=== PATIENT | female | born 1950 | race Caucasian/White ===

== ENCOUNTER 2017-04-02 16:36 | Inpatient (IN) | payer OTHER ==
--- NOTE | 2017-04-02 17:26 | EDPHY ---
H & P Time Seen by Provider: 04/02/17 17:09 HPI/ROS: CHIEF COMPLAINT: Fall HISTORY OF PRESENT ILLNESS: Patient is a 66-year-old female who presents to the emergency department after falling down a flight of stairs at home. Patient complains of left shoulder, left anterior chest and left wrist pain. She also has a bloody nose and a bruise to her left eye. Patient describes mild headache. No loss of consciousness. No nausea or vomiting. She has no numbness or tingling in her extremities. No neck or back pain. No shortness of breath. No abdominal pain. REVIEW OF SYSTEMS: My complete review of systems is negative except as mentioned in the HPI. Past Medical/Surgical History: Includes polymyalgia rheumatica, hypertension Past surgical history: Appendectomy Social history: The patient speaks American. Smoking Status: Never smoked Physical Exam: Vitals noted GENERAL: Well-appearing, in no acute distress, alert. HEAD: No evidence of trauma. EYES: left periorbital hematoma. PERRLA, EOMI. ENT: Airway intact, no dental or oral injury, no malocclusion, no hemotympanum , normal external examination. NECK: The trachea is midline. There is no crepitus. The C-spine is nontender. NEXUS criteria is negative (no midline tenderness, no distracting injury, no altered mental status, no recent alcohol use, no focal neurologic deficit). RESPIRATORY: Clear to auscultation bilaterally, no rales, rhonchi or wheezing. Chest wall: The patient has left anterior chest wall tenderness palpation. There is mild swelling. CVS: Regular rate and rhythm, no rubs, murmurs, or gallops. ABDOMEN: Soft, nontender, nondistended, normal bowel sounds, no bruising or abrasions. Pelvis: Stable. No tenderness palpation. Hips full range of motion. BACK: Normal to inspection, no spinal tenderness, no spinal step off, no notable bruising or abrasions. SKIN: Normal color, warm, dry. No pallor or diaphoresis. EXTREMITIES: Right upper extremity: Atraumatic. No visible signs of trauma. No tenderness palpation. Neurovascular intact distally. Left upper extremity: The patient has a deformity of her left wrist. Mild tenderness palpation. Patient has no elbow tenderness. She has mild left anterior shoulder tenderness no deformity. Neurovascular intact distally. Right lower extremity: Atraumatic. No visible signs of trauma. No tenderness palpation. Neurovascular intact distally. Left lower extremity: Atraumatic. No visible signs of trauma. No tenderness palpation. Neurovascular intact distally. NEURO/PSYCH: Alert and oriented x 3, GCS 15, normal mood and affect, normal motor sensory exam. Constitutional: Initial Vital Signs Temperature (C) 37 C 04/02/17 16:40 O2 Delivery Mode Room Air Allergies/Adverse Reactions: No Known Allergies Allergy (Unverified 04/02/17 16:39) Home Medications: Medication Instructions Recorded Omeprazole 04/02/17 Prednisolone 04/02/17 amLODIPine BESYLATE 04/02/17 Medical Decision Making - Diagnostics Imaging Results: Imaging Impressions Shoulder X-Ray 04/02/17 16:48 Impression: Comminuted distal radial intra-articular fracture. 2. Left Shoulder, 3 views History: Pain post fall Findings: There is a nondisplaced oblique fracture coursing through the distal clavicle. The fracture enters the non disrupted articular surface of the clavicle. The AC joint remains normally aligned. The humeral head remains normally aligned with the glenoid. No shoulder joint fracture is identified. Impression: Distal left clavicular fracture. Wrist X-Ray 04/02/17 16:48 Impression: Comminuted distal radial intra-articular fracture. 2. Left Shoulder, 3 views History: Pain post fall Findings: There is a nondisplaced oblique fracture coursing through the distal clavicle. The fracture enters the non disrupted articular surface of the clavicle. The AC joint remains normally aligned. The humeral head remains normally aligned with the glenoid. No shoulder joint fracture is identified. Impression: Distal left clavicular fracture. Chest X-Ray 04/02/17 17:26 Impression: Possible distal left clavicle fracture. Consider dedicated clavicle x-rays if clinically indicated. Head CT 04/02/17 17:27 Impression: 1. No acute intracranial hemorrhage or skull fracture. 2. Acute depressed left tripod fracture, with involvement of the lateral orbital wall and orbital floor. Findings discussed with Emergency Department physician, Radha Ruth M.D. , on April 02, 2017 at 1814. ED Course/Re-evaluation: In the emergency department I discussed possible etiologies with the patient. I answered all her questions. An x-ray of her left wrist, left shoulder, chest and head CT were ordered. I discussed plan with the patient and her son. Her son translated. Left wrist x-ray: Please refer the dictated report. Patient has a comminuted distal left wrist fracture. Left shoulder x-ray: The patient has a distal clavicle fracture. The head of the clavicle also seems displaced. Because of this a chest x-ray was ordered. I discussed the results with the patient. I answered their questions. Chest x-ray: There is no pneumothorax. No visible rib fracture. There is an abnormally placed left clavicle. I discussed this with the radiologist, Dr. Burroughs. He recommended CT angiogram. This was ordered. I discussed the plan with the patient. I answered all her questions. Patient head and sugar-tong splint placed on her left wrist. Left shoulder sling was placed. This improved her pain. Creatinine 0.8 Patient was given fentanyl 50 mcg IV and Zofran [address]: Please refer the dictated report. No intracranial hemorrhage. No skull fracture. The patient does have an acute minimally displaced left-sided tripod fracture that involves the anterior posterior polanco of the maxillary sinus, temporal zygomatic arch, lateral orbital wall, and orbital floor. I discussed this with the patient. CT angiogram: Please refer the dictated report by Dr. Asya Roldan. I reviewed the images with her. The patient has both proximal and distal left clavicle fracture. The great vessels are intact. There is no hemothorax or pneumothorax. I discussed the case with Dr. Lemon from Trauma surgery. She will come and evaluate the patient. I also discussed the case with Dr. Adames's PA. 1925: The patient is feeling much better after pain medication. Differential Diagnosis: My differential includes but is not limited to rib fracture, pneumothorax, hemothorax, chest wall contusion, wrist fracture, dislocation, sprain, contusion - Data Points Laboratory Results: 04/02/17 18:20 POC Hgb 14.3 gm/dL gm/dL (12.6-16.3) POC Hct 42 % % (38-47) POC Sodium 140 mEq/L mEq/L (134-144) POC Potassium 3.6 mEq/L mEq/L (3.3-5.0) POC Chloride 104 mEq/L mEq/L (97-110) POC BUN 9 mg/dL mg/dL (7-23) POC Creatinine 0.8 mg/dL mg/dL (0.6-1.0) POC Glucose 142 mg/dL H mg/dL (70-100) Medications Given: Discontinued Medications Fentanyl (Sublimaze) 50 mcg IVP EDNOW ONE Stop: 04/02/17 18:48 Last Admin: 04/02/17 19:02 Dose: 50 mcg Ondansetron HCl (Zofran) 4 mg IVP EDNOW ONE Stop: 04/02/17 18:48 Last Admin: 04/02/17 19:02 Dose: 4 mg Point of Care Test Results: 04/02/17 18:20 POC Sodium 140 POC Potassium 3.6 POC Chloride 104 POC BUN 9 POC Creatinine 0.8 POC Glucose 142 H Departure - Departure Disposition: [facility] Inpatient Acute Clinical Impression: Closed tripod fracture of zygomaticomaxillary complex Qualifiers: Encounter type: initial encounter Qualified Code(s): S02.402A - Zygomatic fracture, unspecified side, initial encounter for closed fracture Left wrist fracture Qualifiers: Encounter type: initial encounter Fracture type: closed Qualified Code(s): S62.102A - Fracture of unspecified carpal bone, left wrist, initial encounter for closed fracture Clavicular fracture Qualifiers: Encounter type: initial encounter Clavicle location: unspecified part of clavicle Fracture type: closed Laterality: left Condition: Good Referrals: NONE *PRIMARY CARE P,. [Primary Care Provider] - As per Instructions
[2017-04-02] MEDS ORDERED: IOPAMIDOL (ISOVUE 370) 100 ML BTL IV ONE (18:43)
[2017-04-02] MEDS ORDERED: fentaNYL 100 MCG/2 ML INJ IVP ONE (18:47)
[2017-04-02] MEDS ORDERED: ONDANSETRON 4 MG/2 ML VIAL IVP ONE (18:47)
[2017-04-02] MEDS ORDERED: ACETAMINOPHEN 325 MG TAB PO PRN (19:59)
[2017-04-02] MEDS ORDERED: ONDANSETRON 4 MG/2 ML VIAL IVP PRN (19:59)
--- NOTE | 2017-04-02 20:41 | GHP ---
[f rep st] PREOP HISTORY AND PHYSICAL DATE OF ADMISSION: 04/02/2017 CHIEF COMPLAINT: Fall. HISTORY OF PRESENT ILLNESS: The patient is a 66-year-old woman, who fell down a flight of stairs at home. She did not lose consciousness. She presented with left shoulder and left wrist pain, and a m ild headache. PAST MEDICAL HISTORY: Polymyalgia rheumatica, hypertension. PAST SURGICAL HISTORY: Appendectomy. SOCIAL HISTORY: She speaks Kazakh. She denies tobacco or alcohol use. FAMILY HISTORY: Her father of colon cancer. He also had heart stents. REVIEW OF SYSTEMS: A 10-point review of systems is negative except for pain in her shoulder and wris t. She specifically denies headache currently, double vision, or visual changes. PHYSICAL EXAMINATION: VITALS: Reviewed. GENERAL: Pleasant, well-nourished, well-groomed woman sit ting up on a gurney. Son at bedside, who is assisting with translation. HEENT: She has left perior bital ecchymosis. Otherwise, normocephalic. Pupils are equal, round, and reactive to light. No hem otympanum. No otorrhea. No rhinorrhea. Teeth fit together normally. She reports a small amount of numbness over her left maxilla. NECK: Nontender. Full range of motion. BACK: No cervical, thora cic, lumbar, or sacral tenderness. LUNGS: Clear to auscultation bilaterally. No increased work of breathing. CARDIAC: Regular rate. CHEST: She is tender over her left clavicle. MUSCULOSKELETAL: She has full range of motion and equal strength with the exception of her left upper extremity, whic h is in a splint. Her fingers are warm, and she has good sensation. NEUROLOGIC: Grossly intact. A BDOMEN: Bowel sounds present. Soft, nontender, nondistended. PSYCHIATRIC: Mood and affect normal. LABORATORY DATA: Results reviewed. I reviewed the results of her head CT, C-spine, and chest CT, as well as her plain films. ASSESSMENT: Dr. Adames has been consulted for her clavicle fracture, which is comminuted in 2 [address]. It is at the proximal clavicular head, along with an intra-articular fracture at the dista l clavicle going into the AC joint. She also has a comminuted distal radial intra-articular fracture . She is nonweightbearing on her left upper extremity. She is in a splint and a sling. I will allo w her to eat tonight and be n.p.o. at midnight. I spoke with Dr. Adames, and he will plan to operate on her wrist tomorrow. She has a tripod fracture involving the lateral orbital wall and orbital floo r. Dr. Meredith will see her in the morning. Dr. Trujillo will also see her. /[id number]/MODL
[2017-04-02] MEDS ORDERED: ceFAZolin 2 GM/DEXTROSE 100 ML IV ONE (21:31)
[2017-04-02] MEDS: HYDROCODONE/APAP 5/325 TAB PO PRN (21:53)
[2017-04-02] MEDS: D5W 1/2 NS W/ 20 KCl/L 1,000 ML IV SCH (22:20)
--- NOTE | 2017-04-03 03:03 | GCON ---
[f rep st] CONSULTATION DATE OF CONSULTATION: 04/02/2017 HISTORY OF PRESENT ILLNESS: The patient is a 66-year-old right-handed female, who presents to the em ergency department after she fell down 1 flight of stairs. Patient reports pain in the left upper ex tremity. Patient states she did not lose consciousness. Patient is here visiting from the [facility]. She has plans to return back home on April 13, 2017. Patient denies any headache, numbness, t ingling, or weakness. PAST MEDICAL HISTORY: Polymyalgia rheumatica and hypertension. PAST SURGICAL HISTORY: Appendectomy. ALLERGIES: No known drug allergies. SOCIAL HISTORY: Patient speaks Eritrean. She is from the [facility] and is here visiting family. She denies any tobacco or alcohol use. FAMILY HISTORY: Her father of colon cancer. REVIEW OF SYSTEMS: No other complaints after a 10-point review. PHYSICAL EXAMINATION: GENERAL: Patient is a healthy, well-appearing female. She is alert, active, and in no acute distress. HEENT: Head is normocephalic, atraumatic. Ears, nose, and mouth appear n ormal. Eye motion is intact. There is ecchymosis around the left eye. NECK: Supple with full rang e of motion. Trachea is midline. LUNGS: Chest motion appears normal. Respirations are nonlabored. MUSCULOSKELETAL: Skin is intact over the left upper extremity without any erythema, ecchymosis, jovani r, or edema. The left forearm is in a splint and sling. There is no tenting of the skin over the le ft clavicle. Patient is able to wiggle her fingers on the left upper extremity. Good psychiatric cns strength on the contralateral side. Sensation is intact throughout. Patient has full range of motion and str ength of the bilateral lower extremities without pain. Radial pulse 2+ with brisk capillary refill. Dorsalis pedis pulse 2+. Calves are soft, nontender. Negative Homans. SKIN: Please see dictation above. Otherwise, no other erythema, ecchymosis, calor, or edema. NEURO: Patient appears alert and oriented to person, place, and time. Speech is fluid and fluent. PSYCH: Affect is normal. RADIOGRAPHIC DATA: X-rays are reviewed of the left shoulder and left wrist. The left shoulder x-ray shows a comminuted left clavicle fracture. Of the left wrist, there is a comminuted distal radius i ntraarticular fracture. ASSESSMENT AND PLAN: Left wrist fracture. Discussed with patient and her family that this type of f racture will heal better with an open reduction internal fixation. Risks, benefits, and alternatives were discussed with the patient and her family. Patient has decided to proceed with the described s urgery, and an informed consent was obtained. We will currently treat the clavicle fracture nonopera tively. Patient will remain nonweightbearing of the left upper extremity with her splint and sling. Continue pain management. Ice and elevation for comfort. Surgery is scheduled on April 03, 2017, with Dr. Adames at approximately 3 p.m. Patient will follow up after discharge with Dr. Adames 10-14 d ays postoperatively, ideally before she leaves to go back to the [place]. Also discussed with preet barton to start establishing care in the [place] for when she returns home. The case and radiogra phs were discussed with Dr. Adames, and he agrees with the assessment and plan today. /[id number]/MODL
[2017-04-03] MEDS: HYDROCODONE/APAP 5/325 TAB PO PRN ×2 (04:51→15:57)
--- NOTE | 2017-04-03 08:26 | SOAPPROG ---
MICHEL Progress Note Assessment/Plan: Assessment: Pt seen this am. Has L slightly displaced tripod fx. She wants me to come back when her son is here to discuss options as her Yi is somewhat limited. Full note to follow Plan: 04/03/17 08:25 Objective: Vital Signs Temp Pulse Resp BP Pulse Ox 37.1 C 86 16 121/78 H 95 04/03/17 04:00 04/03/17 04:00 04/03/17 04:00 04/03/17 04:00 04/03/17 04:00 04/02/17 04/03/17 04/04/17 05:59 05:59 05:59 Intake Total 952 Balance 952 ICD10 Worksheet Patient Problems: Problems Problem Status Onset Clavicular fracture Acute Closed tripod fracture of zygomaticomaxillary complex Acute Left wrist fracture Acute
--- NOTE | 2017-04-03 09:37 | SOAPPROG ---
SOKEELEY Progress Note Assessment/Plan: Assessment:Left distal radius fracture, comminuted, intra-articular Plan:Pt. consented and ready for ORIF left distal radius fracture with Dr. Adames later today. S: Pt. states that her pain is "ok", primarily from the left wrist. The clavicle is causing minimal pain at this time. No Chest pain, shortness of breath, calf pain or N/T of the extremities. O: Pt. A and O, in NAD, resting comfortably. Pt. has intact sensation to all digits, left fingers are warm, dry, non-tender. No calf tenderness or swelling. Distally pulses are equal. 04/03/17 09:34 Objective: Vital Signs Temp Pulse Resp BP Pulse Ox 36.8 C 80 16 112/79 94 04/03/17 08:00 04/03/17 08:00 04/03/17 08:00 04/03/17 08:00 04/03/17 08:00 04/02/17 04/03/17 04/04/17 05:59 05:59 05:59 Intake Total 952 Balance 952 ICD10 Worksheet Patient Problems: Problems Problem Status Onset Clavicular fracture Acute Closed tripod fracture of zygomaticomaxillary complex Acute Left wrist fracture Acute
--- NOTE | 2017-04-03 09:52 | SOAPPROG ---
SOAP Progress Note Assessment/Plan: Assessment: Tertiary trauma survey today Alert and oriented with good vision in her left eye despite tripod fracture Chest clear, some clavicle tenderness on the left, no rib tenderness Cor regular rhythm Abdomen soft nontender Extremities full pulses full range of motion except for her left wrist which is in a plaster splint Vital signs are stable, afebrile/no new problems/denies back or chest pain Plan: Left wrist ORIF today/left clavicle fracture nondisplaced and treated non surgically 04/03/17 09:50 Objective: Vital Signs Temp Pulse Resp BP Pulse Ox 36.8 C 80 16 112/79 94 04/03/17 08:00 04/03/17 08:00 04/03/17 08:00 04/03/17 08:00 04/03/17 08:00 04/02/17 04/03/17 04/04/17 05:59 05:59 05:59 Intake Total 952 Balance 952 ICD10 Worksheet Patient Problems: Problems Problem Status Onset Clavicular fracture Acute Closed tripod fracture of zygomaticomaxillary complex Acute Left wrist fracture Acute
--- NOTE | 2017-04-03 11:00 | ASMTCMCOM ---
CM Note CM Note Notes: Pt visiting from [place] (speaks Faroese), had fall at home. Chart review indicates a son is local. Pt having ORIF of L wrist today, clavicle fx non-surgical. OT/PT/SPIRITUAL ADVISOR evals pending. [facility] IPR order in, Crista naidu. Date Signed: 04/03/2017 10:59 AM Electronically Signed By:YAYO Steiner
[2017-04-03] MEDS ORDERED: CEFAZOLIN 2 GM/DEXTROSE/100 ML BAG IV ONE (12:18)
--- NOTE | 2017-04-03 13:37 | PDHPUP ---
History & Physical Update H&P update statement: This history and physical update is based on an assessment of the patient which was completed after admission or registration (within 24 hours), but prior to the surgery/procedure.
[2017-04-03] MEDS ORDERED: BUPIVACAINE 0.5% 30 ML SDV ONE (13:50)
[2017-04-03] MEDS ORDERED: fentaNYL 100 MCG/2 ML INJ ONE ×3 (14:20→18:31)
[2017-04-03] MEDS ORDERED: PROPOFOL 200 MG/20 ML VIAL ONE ×2 (14:21→17:32)
--- NOTE | 2017-04-03 14:28 | PDANEPAE ---
ANE Past Medical History - Cardiovascular History Hx Hypertension: Yes Hx Arrhythmias: No Hx Chest Pain: No Hx Coronary Artery / Peripheral Vascular Disease: No Hx CHF / Valvular Disease: No Hx Palpitations: No - Pulmonary History Hx COPD: No Hx Asthma/Reactive Airway Disease: No Hx Recent Upper Respiratory Infection: No Hx Oxygen in Use at Home: No Hx Sleep Apnea: No Sleep Apnea Screening Result - Last Documented: Positive - Neurologic History Hx Cerebrovascular Accident: No Hx Seizures: No Hx Dementia: No - Endocrine History Hx Diabetes: No Hypothyroid: No Hyperthyroid: No Obesity: no - GI History GERD: moderate Hx Gastrointestinal Disorders: Yes - Other Health History Other Health History: polymyalgia rheumatica ANE Review of Systems Review of Systems: - Exercise capacity METS (RN): 4 METS ANE Patient History - Allergies Allergies/Adverse Reactions: No Known Allergies Allergy (Unverified 04/02/17 16:39) - Home Medications Home Medications: Herbals/Supplements -Info Only 1 ea PO DAILY 04/02/17 [Last Taken 04/02/17] Omeprazole [Prilosec 20 mg] 20 mg PO DAILY 04/02/17 [Last Taken 04/02/17] Prednisolone [Millipred] 2.5 mg PO SUMOTUWEFR 04/02/17 [Last Taken 04/02/17] amLODIPine BESYLATE [Norvasc 5 mg (*)] 5 mg PO DAILY 04/02/17 [Last Taken ] - NPO status NPO Since - Liquids (Date): 04/02/17 NPO Since - Liquids (Time): 23:59 NPO Since - Solids (Date): 04/02/17 NPO Since - Solids (Time): 23:59 - Anes Hx Anes Hx: no prior problems - Smoking Hx Marijuana use: No - Family Anes Hx Family Anes Hx: neg - N/A ANE Labs/Vital Signs - Vital Signs Blood Pressure: 112/79 Heart Rate: 80 Respiratory Rate: 16 O2 Sat (%): 94 Height: 165 cm Weight: 75 kg ANE Physical Exam - Airway Neck exam: FROM Mallampati Score: Class 2 Mouth exam: dentures - Pulmonary Pulmonary: no respiratory distress, no rales or rhonchi, clear to auscultation - Cardiovascular Cardiovascular: regular rate and rhythym, no murmur, rub, or gallop - ASA Status ASA Status: II ANE Anesthesia Plan Anesthesia Plan: general endotracheal anesthesia Total IV Anesthesia: No
--- NOTE | 2017-04-03 16:55 | SOAPPROG ---
SOAP Progress Note Assessment/Plan: Assessment: Spoke with patient and family, who translated. We discussed that does have that L tripod fx that is slightly displaced. It will likely cause some mild malar depression once healed and swelling has gone down. Will heal on own though will leave slight asymmetry. No overt need to do surgery from vision or stability standpoint, mainly cosmetic. She doesn't want surgery, courtney if not 100 % necessary. Should be seen by optho soon for full eye exam. Discussed that if chagnes her mind let us know though would want to do within 7 days of surgery. They understand and agree. Call if notes new sxs or vision changes Plan: 04/03/17 08:25 04/03/17 16:53 Objective: Vital Signs Temp Pulse Resp BP Pulse Ox 36.9 C 85 16 144/90 H 96 04/03/17 15:03 04/03/17 15:03 04/03/17 15:03 04/03/17 15:03 04/03/17 15:03 04/02/17 04/03/17 04/04/17 05:59 05:59 05:59 Intake Total 952 Balance 952 ICD10 Worksheet Patient Problems: Problems Problem Status Onset Clavicular fracture Acute Closed tripod fracture of zygomaticomaxillary complex Acute Left wrist fracture Acute
[2017-04-03] MEDS ORDERED: MIDAZOLAM 2 MG/2 ML VIAL ONE (17:26)
[2017-04-03] MEDS ORDERED: PHENYLEPHRINE HCL 100 MCG/ML SYR ONE (17:43)
[2017-04-03] MEDS ORDERED: MIDAZOLAM 2 MG/2 ML VIAL IVP ONE (18:03)
[2017-04-03] MEDS ORDERED: DEXAMETHASONE 4 MG/ML VIAL ONE (18:09)
[2017-04-03] MEDS ORDERED: ONDANSETRON 4 MG/2 ML VIAL ONE (18:09)
--- NOTE | 2017-04-03 19:07 | GCON ---
[f rep st] CONSULTATION DATE OF CONSULTATION: 04/03/2017 CHIEF COMPLAINT: Fall and facial trauma. HISTORY OF PRESENT ILLNESS: This is a very pleasant 66-year-old woman, who fell down a flight of stairs. She did not have any loss of consciousness, but she did present with some left shoulder, left wrist, and some facial pain. She was noted in the ER after CT scan to have a minimally displaced left tripod fracture. She denies double vision or blurry vision, but history is somewhat limited secondary to her Gambian as her second language. PAST MEDICAL HISTORY: Significant for polymyalgia rheumatica and hypertension. PAST SURGICAL HISTORY: Significant for appendectomy. SOCIAL HISTORY: She speech Nepalese and is from the [place]. She is here visiting her son. REVIEW OF SYSTEMS: Positive for the above. She denied headache, double vision , or blurry vision. PHYSICAL EXAM: GENERAL: She is awake, alert, in no apparent distress. CRANIAL NERVES: 2-12 are grossly intact with the exception of some numbness over the left V2 distribution. Exam of the ears bilaterally shows no hemotympanum or perforation. Exam of the nose shows some dried blood on the left side, but no septal hematoma. Oral cavity and oropharynx show tongue that is mobile and midline, and palate that elevates symmetrically. There is some dried blood in the back of the oropharynx. Pupils are equal, round, and reactive to light, and extraocular movements are intact, but she does have significant subconjunctival hemorrhage, lateral and medial. She also has some ecchymosis over the left zygoma and lateral orbit. She may have a little bit of depression but not obvious. She has mild tenderness of the left zygoma. IMAGING: CT scan was reviewed, and it shows a minimally displaced left tripod fracture. She has a left orbital floor fracture but this is less than 20%. ASSESSMENT AND PLAN: This is a patient who has some facial trauma after a fall at her son's house. I did not discuss with her the options in detail secondary to her language barrier. She did want me to wait until her son was back, so I will try to come back at another time and discuss with her and him the options. She does have these fractures, and repair would mainly be cosmetic. I do not think the floor needs to be repaired from the standpoint of vision or potential enophthalmos in the future, but she may have some slight depression over her zygoma on that left side. She is going to be seen by Dr. Trujillo at some point, and again I will recheck on her and discuss options. /[id number]/MODL MTDD
[2017-04-03] MEDS ORDERED: ONDANSETRON 4 MG/2 ML VIAL IVP PRN (19:47)
[2017-04-03] MEDS ORDERED: NALOXONE HCL 0.4 MG/ML INJ IVP PRN (19:47)
[2017-04-03] MEDS ORDERED: HYDROmorphONE/DILAUDID 1 MG/ML INJ IVP PRN (19:47)
--- NOTE | 2017-04-03 19:52 | POSTANESTH ---
Post Anesthetic Evaluation Cardiovascular Status: Similar to Pre-Op Cond Respiratory Status: Similar to Pre-op Cond. Level of Consciousness/Mental Status: Alert and Oriented, Mildly Sleepy, Arousable Pain Control: Adequate, Prn Tx Ordered Nausea/Vomiting Control: Adequate, Prn Tx Ordered Complications Possibly Related to Anesthesia: None Noted
[2017-04-03] MEDS: D5W 1/2 NS W/ 20 KCl/L 1,000 ML IV SCH (20:55)
[2017-04-03] MEDS: ceFAZolin 2 GM/DEXTROSE 100 ML IV SCH (20:55)
--- NOTE | 2017-04-03 21:37 | GOP ---
[f rep st] OPERATIVE REPORT DATE OF OPERATION: 04/03/2017 SURGEON: Armando Adames MD ANESTHESIA: General. PREOPERATIVE DIAGNOSIS: Comminuted fracture, left distal radius, with greater than 3 fragments and i ntra-articular extension. POSTOPERATIVE DIAGNOSIS: Comminuted fracture, left distal radius, with greater than 3 fragments and intra-articular extension. PROCEDURE PERFORMED: Open reduction and internal fixation, comminuted intra-articular fracture left distal radius (greater than 3 parts). FINDINGS: DESCRIPTION OF PROCEDURE: Patient was taken to the operating room, administered general anesthesia. Placed in supine position. The left upper extremity was prepped and draped in normal sterile fashio n. Esmarch exsanguination was performed followed by elevation of brachial cuff to 225 mmHg pressure. A volar incision was made over the flexor carpi radialis tendon. It was carried through dermal sub cutaneous tissues. The volar sheath of the flexor carpi radialis tendon was divided. The dorsal she ath was then divided and this brought us down onto the pronator quadratus. The fascia over the prona tor quadratus was divided. The pronator quadratus was reflected off the distal radius. There was mu ltiple intra-articular fracture fragments. These were reduced and secured with several K-wires. The Synthes plate was then placed on the distal radial segment. The distal screws were then placed thro ugh the plate x4. The plate was then levered volarly and the volar aspect of the plate was secured w ith three 2.7 mm screws. Each screw hole was drilled and measured prior to placement. There were 3 locking screws distally, 1 nonlocking screw. There were 3 nonlocking screws proximally. Thorough la vage performed with normal saline. Closure was performed of the pronator quadratus with a 4-0 Vicryl suture followed by closure of subcutaneous tissues with a 4-0 Vicryl suture followed by closure of t he dermis with 4-0 Ethilon. A sterile compression dressing applied. The patient had a coaptation sp lint applied. She tolerated procedure well, was transferred back to Recovery in stable condition. N o operative complications. COMPLICATIONS: None. /[id number]/MODL
[2017-04-04] MEDS: ceFAZolin 2 GM/DEXTROSE 100 ML IV SCH ×2 (04:09→11:09)
[2017-04-04 08:00] VITALS: PULSE 85; RESP 18
[2017-04-04] MEDS: HYDROCODONE/APAP 5/325 TAB PO PRN (08:36)
--- NOTE | 2017-04-04 09:05 | SOAPPROG ---
SOAP Progress Note Assessment/Plan: Assessment: POD#1, s/p ORIF with Dr. Adames for left distal radius comminuted, intra-articular fracture. Left distal clavicle fracture Plan:Pt. is cleared to be discharged pending PT/OT approval. Follow up with Dr. Adames in the office late next week, prior to her travel back to the [facility]. S: Pt. states that her wrist feels much better and has since her surgery yesterday. Pain is controlled with oral pain meds. The clavicle is causing minimal pain at this time, she is in a sling. No Chest pain, shortness of breath, calf pain or N/T of the extremities. She has a mild headache, she also complains of some muscle pain in her back. O: Pt. A and O, in NAD, resting comfortably. Pt. has intact sensation to all digits, left fingers are warm, dry, non-tender. No calf tenderness or swelling. Distally pulses are equal. She does not have any ecchymosis to the back, no step offs, deformities or TTP at the thoracic and lumbar spine. 04/03/17 09:34 04/04/17 08:52 Objective: Vital Signs Temp Pulse Resp BP Pulse Ox 37.4 C 85 18 141/87 H 96 04/04/17 07:58 04/04/17 07:58 04/04/17 07:58 04/04/17 07:58 04/04/17 07:58 04/03/17 04/04/17 04/05/17 05:59 05:59 05:59 Intake Total 6064 Output Total 660 Balance 1774 ICD10 Worksheet Patient Problems: Problems Problem Status Onset Clavicular fracture Acute Closed tripod fracture of zygomaticomaxillary complex Acute Left wrist fracture Acute
[2017-04-04 11:55] VITALS: BP 131/77; TEMP 99.1; O2SAT 94
[2017-04-04] MEDS ORDERED: HYDROCODONE/APAP 5/325 TAB PO PRN (13:36)
--- NOTE | 2017-04-04 14:28 | ASDISCHSUM ---
Discharge Information Plan Status:Home with No Needs Medically Cleared to Leave: Discharge Date:04/04/2017 02:05 PM CM D/C Disposition:Home, Routine, Self-Care ADT D/C Disposition:Home, Routine, Self-Care Projected Discharge Date:04/04/2017 02:05 PM Transportation at D/C: Discharge Delay Reason: Follow-Up Date:04/04/2017 02:05 PM Discharge Slot: Final Diagnosis: Placement Information Patient Contact Information Contact Name:DEXTERNAV Relationship:Wilver Address: Work Phone: City: [facility] Phone: State/Zip Code: Email: Financial Information Financial Class:HMO and PPO Plans Primary Plan Desc:[employer] Primary Plan Number:[id number] Secondary Plan Desc: Secondary Plan Number: Assessment Information [facility] CM Progress Note CM Note CM Note Notes: Pt visiting from [place] (speaks [place]), had fall at home. Chart review indicates a son is local. Pt having ORIF of L wrist today, clavicle fx non-surgical. OT/PT/ROD FINISHER evals pending. [facility] IPR order in, Crista naidu. Date Signed: 04/03/2017 10:59 AM Electronically Signed By:YAYO Steiner [facility] CM Progress Note CM Note CM Note Notes: Pt medically stable for d/c, no CM d/c needs identified Date Signed: 04/04/2017 02:27 PM Electronically Signed By:YAYO Steiner Intervention Information
--- NOTE | 2017-04-04 16:16 | GDS ---
[f rep st] DISCHARGE SUMMARY CHIEF COMPLAINT: This 66-year-old female presented to the emergency department after a traumatic fal l down a flight of steps. PREOPERATIVE DIAGNOSIS: A left distal radius intraarticular comminuted fracture and a left distal cl avicle fracture. POSTOPERATIVE DIAGNOSIS: ORIF of a left distal radius fracture, which was comminuted. Her left clavicle fracture is being managed non-operatively. HISTORY OF PRESENT ILLNESS: The patient presented to the emergency department after a fall down a fl ight of steps, and sustained the above mentioned left distal radius fracture and left clavicle fractu re. She also sustained a left depressed tripod fracture with lateral wall and orbital floor involvem ent, which was managed by ENT. HOSPITAL COURSE: The patient was admitted, placed on IV cefazolin for antibiotic measure, was taken to the operating room on 04/03/2017, where upon she underwent an ORIF for her left comminuted distal radius fracture. This was performed by Dr. Adames. There were no intraoperative complications. Post op treatment for VTE prophylaxis includes mechanical prophylaxis with NELLIE hose placement and sequenti al compression devices. She was consulted on by Dr. Olmstead, from trauma service and Dr. Zacarias from ENT. The patient decided to manage her facial fracture nonoperatively. The patient's incision is healing well, with no evide nce of infection. She has normal sensation and circulation to all digits. DISCHARGE INSTRUCTIONS: The patient was advised to remain in her splint and sling until her follow u p appointment. She was also advised to apply ice to both the clavicle and wrist for discomfort, as w ell as to elevate the arm and use Tylenol for pain. She was prescribed a prescription for [place], to be taken 1 to 2 every 4-6 hours as needed for moderate to severe pain. She was advised not to take a nti-inflammatories. She will call [facility] to schedule an appointment with Dr. Adames f or next or Friday, as she is leaving to go back to the [place], where she lives on the friday. If the patient develops any increased pain, circulation issues, or concerns, she wi ll call our office immediately, to be seen sooner. DISCHARGE MEDICATIONS: Included [place]. The patient was also to resume her preoperative medications at their prescribed dose. /[id number]/MODL
== END 2017-04-04 14:05 | disposition home or self-care (01) | DRG 511 ==
LOC: F3N 20:47 → OBSVTOIN 04-03 16:00
PROVIDERS: ADMIT Surgery; ATTEND Surgery
PROC: 0PSJ04Z Reposition Left Radius with Internal Fixation Device, Open Approach (ICD-10-PCS; principal; 2017-04-03 12:00)
DX: S52.572A Other intraarticular fracture of lower end of left radius, initial encounter for closed fracture (principal); S42.002A Fracture of unspecified part of left clavicle, initial encounter for closed fracture; S02.40FA Zygomatic fracture, left side, initial encounter for closed fracture; W10.8XXA Fall (on) (from) other stairs and steps, initial encounter; Y92.018 Other place in single-family (private) house as the place of occurrence of the external cause; I10 Essential (primary) hypertension; M35.3 Polymyalgia rheumatica
CPT/HCPCS: 82947-QW; 92523-GN; 96374; 97161-GP; 97165-GO; A4565; C1713; G0378; J0690; J1100; J2250; J2370; J2405; J2704; J3010; Q9967